=== PATIENT | male | born 1960 | race Caucasian/White ===

== ENCOUNTER 2016-06-17 11:17 | Emergency (ER) | payer MEDICAID, OTHER ==
[~2016-06-17] VITALS: Wt 92.5 kg
[2016-06-17] MEDS ORDERED: KETOROLAC 30 MG INJ IM STA (11:42)
[2016-06-17 11:56] VITALS: BP 134/96
--- NOTE | 2016-06-17 12:43 | RADRPT ---
PROCEDURE: Chest x-ray CLINICAL INDICATION: Shortness of breath TECHNIQUE: Chest single view COMPARISON: None FINDINGS: The heart is normal in size. The pulmonary vessels are normal in caliber. The lungs are clear. Th e costophrenic angles are sharp. There is an acute left distal clavicle fracture with angulation. The bony thorax is otherwise unremarkable. IMPRESSION: No acute cardiopulmonary disease. Acute left distal clavicle fracture with angulation. RPTAT: HH .Shabbir Lemus MD, Date Time Electronically viewed and signed by .Shabbir Lemus MD, on 06/17/2016 12:42 .W/
[2016-06-17] MEDS ORDERED: IBUP-1542 PO (12:52)
--- NOTE | 2016-06-17 13:42 | RADRPT ---
PROCEDURE: XR left Shoulder. CLINICAL INDICATION: Left shoulder pain TECHNIQUE: 3 views of the left shoulder are available for review. COMPARISON: None available FINDINGS: There is a comminuted displaced left mid/distal clavicle fracture approximately 5 cm from the acrom ioclavicular joint with 1 shaft's width inferior displacement and apex superior angulation. No deja tional fractures are definitively seen. There is no evidence of dislocation of the glenohumeral tim nt. Visualized left lung is clear. There is a rounded density projecting over the left lateral august nth rib that may reflect a healed fracture but is nonspecific. IMPRESSION: 1. Acute comminuted and displaced left mid/distal clavicle fracture as above. RPTAT: [facility]U .Lei Bunn MD, Date Time Electronically viewed and signed by .Lei Bunn MD, on 06/17/2016 13:41 .K/
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
== END 2016-06-17 13:16 | disposition home or self-care (01) ==
LOC: E/R 11:17
DX: S42.032A Displaced fracture of lateral end of left clavicle, initial encounter for closed fracture (principal); V18.4XXA Pedal cycle driver injured in noncollision transport accident in traffic accident, initial encounter
CPT/HCPCS: 29105; 71010; 73030; J1885; Z7502; Z7610

== ENCOUNTER 2017-02-21 08:34 | Emergency (ER) | payer MEDICAID ==
[~2017-02-21] VITALS: Ht 195.6 cm; Wt 100.9 kg
[~2017-02-21 08:34] MED LIST: IBUP-1542 PO
[2017-02-21 08:37] VITALS: Ht 195.6 cm; Wt 100.9 kg
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
[2017-02-21] MEDS ORDERED: LIDOCAINE 1% (MDV) 20 ML INJ SC ONE (09:00)
--- NOTE | 2017-02-21 09:13 | RADRPT ---
PROCEDURE: CT Brain without contrast. CLINICAL INDICATION: Fall, right frontal laceration, concussion TECHNIQUE: A CT of the brain was performed on a [employer] Guardian 64-slice CT scanner utilizing axial imaging from the skull base through the vertex without IV contrast. Multiplanar reformatted images were made. Images were reviewed on a PACS workstation. The CTDIvol is 44.97 mGy and the DLP is 72 0.23 mGycm. One or more of the following dose reduction techniques were used: automated exposure co ntrol, adjustment of the mA and/or kV according to patient size, or use of iterative reconstruction technique. DICOM images are available. COMPARISON: None FINDINGS: Small right frontal parietal scalp hematoma is seen. There is no acute intracranial hemorrhage, mass effect, or midline shift. No extra-axial fluid collection is seen. The ventricles and sulci are no rmal in size and configuration. The density of the brain is normal, and the longoria white matter differ entiation appears well-preserved. The brainstem and posterior fossa are normal. The visualized paran sebastian sinuses and osseous structures are grossly unremarkable. IMPRESSION: 1. No evidence of acute intracranial pathology. 2. Small right frontal parietal scalp hematoma. RPTAT: HCNS Physician Santana Date Time Electronically viewed and signed by Physician Santana on 02/21/2017 09:13 /
[2017-02-21] MEDS ORDERED: TRAM50TA2 PO (10:01)
== END 2017-02-21 10:27 | disposition home or self-care (01) ==
LOC: FTE 08:34
DX: S01.81XA Laceration without foreign body of other part of head, initial encounter (principal); V89.2XXA Person injured in unspecified motor-vehicle accident, traffic, initial encounter
CPT/HCPCS: 12001; 70450; Z7502; Z7610